=== PATIENT | female | born 1995 | race Caucasian/White ===

== ENCOUNTER 2022-01-01 13:13 | Emergency (ER) | payer OTHER, SELFPAY ==
[2022-01-01 13:29] VITALS: BP 151/90; PULSE 107; RESP 18; TEMP 37.3; O2SAT 99
--- NOTE | 2022-01-01 13:45 | ED.URI ---
HPI - URI/Sore Throat General Chief Complaint: Upper Respiratory Infection Stated Complaint: congestion,cough Time Seen by Provider: 01/01/22 13:45 Source: patient, RN notes reviewed and old records reviewed Mode of arrival: ambulatory Limitations: no limitations History of Present Illness HPI Narrative: 26-year-old female who presents to [facility] care with complaints of cough with congestion and expectoration of green-tinged phlegm for 1 week duration. Patient reports she has taken Mucinex, NyQuil, and ibuprofen with no improvement in her symptoms. Patient also reports some sinus drainage with pressure to her forehead and sore throat. Patient denies any known fever chills or sweats, denies any shortness of breath with no tachypnea. Patient also states complaints of white vaginal discharge which is itchy with past history of yeast infection. Patient reports that she has been vaccinated for COVID and also had in July of 2021. MD elicited complaint: cough Treatments prior to arrival: ibuprofen and other (Mucinex and Nyquil) Related Data Home Medications Medication Instructions Recorded Confirmed norethindrone 1 mg-ethinyl 1 tablet PO DAILY 01/01/22 01/01/22 estradiol 20 mcg (24)-iron 75 mg (4) tablet (Blisovi 24 Fe) Allergies Allergy/AdvReac Type Severity Reaction Status Date / Time No Known Allergies Allergy Verified 01/01/22 13:39 Review of Systems Review of Systems: CONSTITUTIONAL: No known fever, no chills, or sweats. EYES: Denies visual changes, redness, or discharge. ENT: Positive rhinorrhea, congestion, sore throat, no otalgia. CARDIOVASCULAR: Denies chest pain, palpitations, or edema. RESPIRATORY: Positive for cough denies dyspnea. GASTROINTESTINAL: Denies abdominal pain, nausea, vomiting, or diarrhea. GENITOURINARY: Denies dysuria or hematuria.positive for white vaginal discharge itchy SKIN: Denies rash or itching. MUSCULOSKELETAL: Denies back pain, joint pain, or myalgia. NEUROLOGIC: Positive for frontal headache, no numbness, or weakness. PSYCHIATRIC: Denies anxiety or depression. [facility] Past Medical History Medical History (Updated 01/02/22 @ 16:16 by Katherine Monsivais NP) No pertinent past medical history Surgical History Surgical History (Updated 01/02/22 @ 16:16 by Katherine Monsivais NP) No history of previous surgery Social History Social History (Updated 01/01/22 @ 14:07 by Katherine Monsivais NP) Smoking status: Never smoker Alcohol intake: current Alcohol use details: Rare social Substance use: never Living arrangements: with family Gender identity (if verbalized by the patient): Female Comments At time of signature, agree with nursing past medical, surgical, social and family history. There is no relevant family history pertinent to the presenting complaint Exam Narrative: GENERAL: Well-appearing, well-nourished, and in no acute distress. HEAD: Normocephalic, atraumatic. EYES: PERRLA and EOMI. ENT: Nares red with some rhinorrhea no epistaxis. Mucous membranes moist.TM's normal with dull light reflex, throat red with no lesions or exudates or tonsil swelling NECK: Supple.no lymphadenopathy CHEST: Clear to auscultation. No respiratory distress.SAO2 99% on room air HEART: Regular rate and rhythm. No murmur heard. Normal peripheral pulses. ABDOMEN: Soft, nontender, nondistended, normal active bowel sounds. EXTREMITIES: Normal range of motion. No edema. SKIN: Warm, dry, no rash. NEURO: No focal deficits. Alert and oriented x3. Course Course Level of Care: Express Care Visit Vital Signs Vital signs: Vital Signs Temperature 37.3 C 01/01/22 13:29 Pulse Rate 107 H 01/01/22 13:29 Respiratory Rate 18 01/01/22 13:29 Blood Pressure 151/90 H 01/01/22 13:29 Pulse Oximetry 99 01/01/22 13:29 Oxygen Delivery Room Air 01/01/22 13:29 Temperature 37.3 C 01/01/22 13:29 Pulse Rate 107 H 01/01/22 13:29 Respiratory Rate 18 01/01/22 13:29 Blood Pr
== END 2022-01-01 14:10 | disposition home or self-care (01) ==
PROVIDERS: Emergency Provider Registered Nurse
DX: J06.9 Acute upper respiratory infection, unspecified (principal); B37.3 Candidiasis of vulva and vagina; Z86.16 Personal history of COVID-19
CPT/HCPCS: 99213; G0463

== ENCOUNTER 2022-09-18 18:17 | Emergency (ER) | payer OTHER, SELFPAY ==
[2022-09-18 18:20] VITALS: BP 149/110; PULSE 108; RESP 20; TEMP 37.1; O2SAT 100
--- NOTE | 2022-09-18 18:21 | ED.EAR ---
HPI - Ear Problem General Chief complaint: Ear Stated complaint: ear pain Time Seen by Provider: 09/18/22 18:21 Source: patient and RN notes reviewed History of Present Illness HPI Narrative: Patient is a 27-year-old female who presents to urgent care with complaints of bilateral earache and dizziness. Patient was seen Sunday in the emergency room and had a negative CT scan and was treated for vertigo with meclizine, Ativan and Zofran. Patient denies of any new symptoms with the exception of a low-grade fever. No other acute complaints. No acute distress noted. Patient aware of the plan of care. Some parts of this dictation were generated by voice recognition software and may contain typographical and/or grammatical inaccuracies. Related Data Home Medications Medication Instructions Recorded Confirmed norethindrone 1 mg-ethinyl 1 tablet PO DAILY 01/01/22 09/18/22 estradiol 20 mcg (24)-iron 75 mg (4) tablet (Blisovi 24 Fe) lorazepam 0.5 mg tablet 0.5 mg PO Q8-10H PRN Anxiety 09/18/22 09/18/22 ondansetron HCl 4 mg tablet 4 mg PO Q8-10H PRN Nausea 09/18/22 09/18/22 Allergies Allergy/AdvReac Type Severity Reaction Status Date / Time No Known Allergies Allergy Verified 01/01/22 13:39 Review of Systems Review of Systems: CONSTITUTIONAL: Denies fever, chills, or sweats. EYES: Denies visual changes, redness, or discharge. ENT: Denies rhinorrhea, congestion, sore throat. Reports bilateral otalgia CARDIOVASCULAR: Denies chest pain, palpitations, or edema. RESPIRATORY: Denies cough or dyspnea. GASTROINTESTINAL: Denies abdominal pain, nausea, vomiting, or diarrhea. GENITOURINARY: Denies dysuria or hematuria. SKIN: Denies rash or itching. MUSCULOSKELETAL: Denies back pain, joint pain, or myalgia. NEUROLOGIC: Denies headache, numbness, or weakness. Reports of dizziness All other systems reviewed are negative, except as documented in HPI. [facility] Past Medical History Medical History (Updated 09/18/22 @ 18:35 by ROSHNI Still) No pertinent past medical history Surgical History Surgical History (Updated 01/02/22 @ 16:16 by Katherine Monsivais NP) No history of previous surgery Social History Social History (Updated 01/01/22 @ 14:07 by Katherine Monsivais NP) Smoking status: Never smoker Alcohol intake: current Alcohol use details: Rare social Substance use: never Living arrangements: with family Gender identity (if verbalized by the patient): Female Comments At the time of my signature, I reviewed and agree with the nursing past medical, surgical, social, and family history. There is no relevant family history pertinent to the patient complaint. Exam Narrative: GENERAL: This is a well-nourished, well-developed patient. Tearful HEAD: normocephalic, atraumatic. EYES: PERRL. Sclera clear/white. Vision is grossly intact. EARS: External ears normal, auditory canals clear and without drainage, TMs normal without perforation. Hearing grossly intact. NOSE: External nose normal with no obvious nasal discharge, nares without redness, no rhinorrhea. THROAT: Mucous membranes moist, posterior pharynx clear. Mild postnasal drainage NECK: Neck supple CARDIOVASCULAR: Regular rate and rhythm SKIN: warm, intact with no suspicious lesions or rash, good texture and turgor. NEURO: awake, alert, and oriented to person, place and time. There were no obvious focal neurologic abnormalities. Slightly unsteady with ambulation EXTREMITIES: No clubbing, cyanosis, or edema. Course Course Level of Care: Express Care Visit Vital Signs Vital signs: Vital Signs Temperature 98.7 F 09/18/22 18:20 Pulse Rate 108 H 09/18/22 18:20 Respiratory Rate 20 09/18/22 18:20 Blood Pressure 149/110 H 09/18/22 18:20 Pulse Oximetry 100 09/18/22 18:20 Oxygen Delivery Room Air 09/18/22 18:20 Temperature 98.7 F 09/18/22 18:20 Pulse Rate 108 H 09/18/22 18:20 Respiratory Rate 20 09/18/22 18:20 Bloo
== END 2022-09-18 18:40 | disposition home or self-care (01) ==
PROVIDERS: Emergency Provider Nurse Practitioner Family; PCP Family Medicine
DX: R42 Dizziness and giddiness (principal)
CPT/HCPCS: 99213; G0463